=== PATIENT | male | born 1975 ===

== ENCOUNTER 2018-09-14 13:08 | Outpatient (CLI) | payer OTHER ==
[~2018-09-14] VITALS: Ht 182.9 cm; Wt 83.9 kg
== END 2018-09-14 13:20 | disposition home or self-care (01) ==
LOC: OFIC 805 13:08
DX: H92.01 Otalgia, right ear (principal)

== ENCOUNTER 2019-12-20 09:33 | Outpatient (CLI) | payer OTHER | END 2019-12-20 10:20 | disposition home or self-care (01) | LOC: OFIC 805 09:33 | PROVIDERS: ATTEND Otolaryngology | DX: H92.01 Otalgia, right ear (principal); H61.21 Impacted cerumen, right ear ==